=== PATIENT | male | born 1955 | race Caucasian/White ===

== ENCOUNTER → 2020-06-07 08:06 | Outpatient (CLI) | payer OTHER, SELFPAY ==
--- NOTE | 2020-06-07 | DI.MRI.S_ITS ---
PROCEDURE: MR LUMBAR SPINE WO CON INDICATIONS: Low back pain TECHNIQUE: Noncontrast sagittal T1 spin echo and T2 fast echo, sagittal STIR, axial T1 and T2 fast spin echo through the lumbar spine. In cases with scoliosis, additional coronal T2 fast spin echo may be performed. COMPARISON: [facility] Outside Film, RG, SPINE LUMB 2 OR 3VW, 04/30/2020, 10:55. [facility] Outside Film, CT, CT ABDOMEN PELVIS WITH/WITHOUT CONTRAST, 05/06/2014, 14:43. (No written reports accompany the outside images) FINDINGS: Image quality: Diagnostic, with note made of motion artifact. Alignment and Curvature: Mild levoconvex scoliotic curvature is noted. There is minimal retrolisthesis seen at L1-2 and mild retrolisthesis seen at L2-L3 and at L3-L4. Bone Marrow: Marrow is of normal overall signal. Within the anterior/right aspect of the L1 level, there is increased T2 weighted signal and decreased T1 weighted signal seen, as on series 4, image 8 and on series 3, image 8. A mild degree of similar-appearing abnormal signal can be seen within the L2 level, as on series 4, image 7. No acute vertebral body compression fractures. Spinal Cord: Conus medullaris terminates at the L1 level. Visualized cord demonstrates normal signal and size. Paraspinous Soft Tissues: No paravertebral masses. T12-L1: The disc height is well-preserved. Loss of disc signal is seen at this level. Mild to moderate disc bulge is seen, which is eccentric to the right. Bridging endplate osteophytes are seen on the right side. Mild facet joint hypertrophy is seen. There is at least moderate right-sided and moderate left-sided neural foraminal narrowing seen. Mild to moderate central canal narrowing is seen. L1-L2: At least moderate loss of disc height and disc signal can be seen. At least moderate disc bulge is seen, which is eccentric to the right. Mild to moderate facet hypertrophy is seen. There is at least moderate bilateral neural foraminal narrowing seen, right worse than left. Moderate central canal narrowing is seen. L2-L3: Moderate to severe loss of disc height and disc signal can be seen. Reactive marrow endplate changes are seen, which demonstrate mixed T1 weighted and T2-weighted signal, and are attributed to a combination of edema and fatty metaplasia (Modic type I and Modic type II changes). Moderate to prominent disc bulge is seen, with a central disc osteophyte protrusion. There is at least moderate facet hypertrophy seen. Associated hypertrophy of the ligamentum flavum can be seen. Moderate to severe bilateral neural foraminal narrowing is seen, right worse than left. There is a degree of compression seen upon the exiting nerve roots. Moderate to severe central canal narrowing is seen, as on series 5, image 18. L3-L4: Moderate to severe loss of disc height and disc signal can be seen. Reactive marrow endplate changes are seen, which are hyperintense on T1-weighted and T2-weighted imaging and most consistent with fatty metaplasia (Modic type II changes). At least moderate disc bulge is seen. There is a central disc protrusion. At least moderate facet hypertrophy is seen. Associated hypertrophy of the ligamentum flavum can be seen. There is moderate left-sided and [id number] right-sided neural foraminal narrowing seen. There is a degree of compression seen upon the exiting right L3 nerve root. Moderate to severe central canal narrowing is seen at this level, as on series 5, image 25. L4-L5: Postoperative changes seen at this level, with associated susceptibility artifact. Bilateral pedicle screws are seen, with vertical fixation rods. A disc spacer is seen. The disc level itself is not well seen. However, there does appear to be mild to moderate disc bulge. Likely mild bilateral neural foraminal narrowing can be seen. Mild to moderate central canal narrowing is seen. L5-S1: There is at least moderate loss of disc height and disc signal present. Mild to moderate disc bulge is seen. The neural foramina are obscured. There does appear to be mild to moderate left-sided and minimal right-sided neural foraminal narrowing. No significant central canal narrowing is seen. IMPRESSION: There is abnormal signal seen within the L1 vertebral body and to a lesser degree within the L2 vertebral body. In a patient of this age, differential diagnosis includes metastatic disease and bone contusion. Please correlate with known patient history. If clinically appropriate, please consider a follow-up nuclear medicine bone scan or CT study for further evaluation. Unremarkable L4-5 postoperative change. Multiple levels of degenerative change are seen, which are most prominent at L2-L3 and L3-L4. Mild levoconvex lumbar scoliotic curvature. Dictated by: Jacobo Junior M.D. on 06/09/2020 at 8:47 Approved by: Jacobo Junior M.D. on 06/09/2020 at 8:56
== END ==
PROVIDERS: PCP Family Medicine; Referring Provider Orthopaedic Surgery; Visit Provider Orthopaedic Surgery
DX: M54.5 Low back pain (principal); M89.9 Disorder of bone, unspecified; M47.816 Spondylosis without myelopathy or radiculopathy, lumbar region; M41.86 Other forms of scoliosis, lumbar region
CPT/HCPCS: 72148

== ENCOUNTER → 2020-07-03 09:39 | Outpatient (CLI) | payer OTHER, SELFPAY ==
--- NOTE | 2020-07-03 | DI.NM.S_ITS ---
PROCEDURE: NM BONE SPECT RADIOPHARMACEUTICAL: 20.3 mCi Tc-99m MDP IV. INDICATIONS: Wedge compression fracture of T11-T12 vertebra, in TECHNIQUE: Delayed bone scintigrams were obtained of the region of interest 3-4 hours after intravenous administration of Tc-99m MDP. Additional tomographic (SPECT) imaging was performed and displayed in axial, coronal, and sagittal planes. COMPARISON: [facility] Outside Film, CT, CT ABDOMEN PELVIS WITH/WITHOUT CONTRAST, 05/06/2014, 14:43. [facility] Outside Film, RG, SPINE THORACIC 2VW, 04/30/2020, 11:03. [facility] Outside Film, RG, SPINE LUMB 2 OR 3VW, 04/30/2020, 10:55. [facility], MR, MR LUMBAR SPINE WO CON, 06/07/2020, 8:20. FINDINGS: There is mild tracer uptake in the right anterior paravertebral location at T12-L1 level which is likely reactive to severe spondylosis and degeneration with bulky osteophyte formation best seen on the CT from 05/06/14. IMPRESSION: Low-grade presumed reactive/degenerative tracer uptake at the T12-L1 level. Elsewhere, no suspicious tracer activity. Dictated by: David Phillip M.D. on 07/03/2020 at 15:11 Approved by: David Phillip M.D. on 07/03/2020 at 15:22
== END ==
PROVIDERS: PCP Family Medicine; Referring Provider Family Medicine; Visit Provider Orthopaedic Surgery
DX: S22.080A Wedge compression fracture of T11-T12 vertebra, initial encounter for closed fracture (principal)
CPT/HCPCS: 78305; A9503

== ENCOUNTER → 2025-02-27 10:53 | Outpatient (CLI) | payer OTHER, SELFPAY ==
--- NOTE | 2025-02-27 10:55 | DI.CT.S_ITS ---
PROCEDURE: CT CHEST WO CON INDICATIONS: LLL consolidation with possible airway lesion. TECHNIQUE: Noncontrast 5 mm thick sections acquired from the pulmonary apices to the posterior costophrenic angles. 1 mm lung window, 5 mm thick coronal and sagittal and 7 mm axial MIP reformats were then acquired. For radiation dose reduction, the following was used: automated exposure control, adjustment of mA and/or kV according to patient size. COMPARISON: Outside Facility, CT, CT CHEST WO CON, 01/10/2025, 9:46. FINDINGS: Image quality: Diagnostic. Lower Neck: No enlarged lymph nodes. Thyroid: No thyroid nodules which require sonographic follow up, per consensus guidelines. Axillae: No enlarged lymph nodes. Chest Wall: Bilateral gynecomastia. Bones: Stable compression deformity of the T11 and T12 vertebral bodies. Healed left rib fractures. Lungs and Pleura: No pneumothorax or pleural effusions. Persistent pleural parenchymal bands in the left lower lobe . New tree-in-bud nodules in the lateral left lower lobe . Persistent filling defect within the proximal segmental airways of the left lower lobe (series 3, image 153). Stable pulmonary micro nodules. Heart: Heart size is normal. No pericardial effusion. Thoracic Vessels: The aorta and pulmonary arteries demonstrate normal size. Mediastinum and Yeny: No enlarged lymph nodes. Esophagus: No wall thickening. No hiatal hernia. Upper Abdomen: Severe hepatic steatosis. IMPRESSION: Persistent filling defects within the proximal segmental bronchi of the left lower lobe. Recommend endobronchial evaluation to exclude mass. New tree-in-bud nodules in the lateral left lower lobe, likely infectious or inflammatory bronchiolitis. Severe hepatic steatosis. Dictated by: Stefan Bautista M.D. on 02/27/2025 at 12:04 Approved by: Stefan Bautista M.D. on 02/27/2025 at 12:10
== END ==
LOC: CT 10:55
PROVIDERS: PCP Registered Nurse; Referring Provider Student in an Organized Health Care Education/Training Program; Visit Provider Student in an Organized Health Care Education/Training Program
DX: R91.8 Other nonspecific abnormal finding of lung field (principal); K76.0 Fatty (change of) liver, not elsewhere classified; R93.89 Abnormal findings on diagnostic imaging of other specified body structures; R06.02 Shortness of breath
CPT/HCPCS: 71250

== ENCOUNTER 2025-03-05 11:25 | Day surgery (SDC) | payer OTHER, SELFPAY ==
[2025-03-05] VITALS (7 sets, daily range): BP systolic 92–145; BP diastolic 50–101; PULSE 62–80; RESP 12–22; TEMP 36.5; O2SAT 92–96
--- NOTE | 2025-03-05 | PATH_ITS ---
Note [facility] Accession Number: [id number] TESTS RESULT FLAG UNITS REF RANGE LAB Clinician Provided Cytology Information No. of containers..01 Other (Miscellaneous) Source: LEFT LOWER LOBE ENDOBRONCHIAL LESION DIAGNOSIS: LEFT LOWER LOBE ENDOBRONCHIAL LESION, BRUSHING. NEGATIVE FOR MALIGNANT CELLS. BRONCHIAL EPITHELIAL CELLS WITH REACTIVE CHANGES. Pathologist ICD10: R89.6 Signed out by: Brianna Cuevas MD, Pathologist NPI- [id number] Performed by: Yanick Milton, Food Clerk ([facility]) Gross description: 30 CC, COLORLESS, CLEAR RECEIVED: 1 BRUSH IN CYTOLYT WITH BLUE CAP CONTAINER.VO /VDU 03/07/2025 1041 Local FLAG LEGEND: L-Low Normal,H-High Normal,LL-Alert Low,HH-Alert High <-Panic Low,>-Panic High,A-Abnormal,AA-Critical Abnormal Performed at: 01 [address] [facility] [address] [place] [address] [address] [facility], [place] [address] John Faustin MD, Performed at: [address] [place] [address], [place], [place] [id number] MD John Faustin MD Phone: [phone]
[2025-03-05] MEDS: LACTATED RINGERS 1,000 ML 42 ML IV (11:57)
[2025-03-05] MEDS: ALBUTEROL/IPRATROPIUM 3 ML AMPUL INH (11:58)
--- NOTE | 2025-03-05 13:11 | PM.PREOP ---
Pre-operative Note Interval Note History & Physical reviewed/Exam performed by Physician: Yes Changes to H&P: No H&P completed within 30 days and has changed as indicated here:: Yes completed ASA Class (for procedural sedation): I
--- NOTE | 2025-03-05 13:18 | SUR.OPER ---
Supine on gurney, head on towels, arms at side, legs uncrossed.
--- NOTE | 2025-03-05 13:56 | PM.OP.1 ---
Operative Date/Time/Diagnoses Date of procedure: 03/05/25 Time of procedure: 13:20 Pre-op diagnosis: Endobronchial lesion Post-op diagnosis: same Procedure & Clinicians Procedure: Bronchoscopy with endobronchial biopsy Same procedure as scheduled: Yes Indications: Concern for endobronchial mass Surgeon: Emir Allen Click Yes if Unassisted: Yes Anesthesia Type: General Operative Notes Findings: Using therapuetic/diagnostic bronchoscope evaluated right and left lung down to subsegmental level. Roght lung without abnormality. In the left lower lobe notable endobronchial lesion seen in the anterior medial segment of left lower lobe. Forceps biopsy performed x 6. Brushing performed x 1. Forceps biopsy placed into formalin and brushing placed into cytolyte. Lesion monitored x 2 minutes post procedure. Bleeding noted which resolved after instillation of cold saline. Patient tolerated procedure well. Estimated Blood Loss (mL): 5 Complications: none Post-operative Condition: stable Disposition: PACU
--- NOTE | 2025-03-05 14:28 | P.DS_ITS ---
History of Present Illness History of Present Illness Date Patient Seen: 03/05/25 Time Patient Seen: 13:20 Chief complaint: Bronchoscopy Narrative: Larry is a 69-year-old male who presents to [facility] for bronchoscopy for evaluation of endobronchial lesion. Bronchoscopy performed with successful forceps biopsy of endobronchial lesion. Patient monitored in postanesthesia care unit. No acute complications. We will follow up with Pulmonary as an outpatient Discharge Providers Provider Discharge Date: 03/05/25 Primary care physician: HARI Ambrocio Discharge provider: Emir Allen MD Summary Status at Discharge Cognitive/behavioral status at discharge: oriented Time Spent with Patient Time spent: Less than 30 minutes Exam Vital Signs (past 8 hours): - 03/05/25 12:05 03/05/25 14:07 03/05/25 14:12 Temperature 97.7 F 97.7 F Pulse Rate 80 62 62 Respiratory Rate 18 16 18 Blood Pressure 145/84 H 145/101 H 102/50 L Pulse Oximetry 96 95 92 Oxygen Delivery Method Room Air Simple Mask Room Air 03/05/25 14:17 03/05/25 14:22 03/05/25 14:26 Temperature Pulse Rate 64 63 Respiratory Rate 18 12 14 Blood Pressure 92/54 L 106/61 104/55 L Pulse Oximetry 92 93 93 Oxygen Delivery Method Room Air Room Air Room Air Oxygen Delivery Method Room Air Narrative Exam Narrative: GEN: No acute distress. Generally well-appearing. HEENT: Extraocular muscles grossly intact. CV: Regular rate and rhythm. No murmurs gallops or rubs. Resp: Right lung wheeze Ext: No peripheral edema. No deformities. Neuro: Cranial nerves grossly intact. No focal deficits. [facility] Medical History (Updated 02/19/25 @ 11:12 by Emir Allen MD) Abnormal chest CT Shortness of breath Social History Smoking Status: Former smoker alcohol intake: current Discharge Assessment & Plan Assessment and Plan Assessment: No acute complications. Okay for discharge Plan of Treatment: Follow up with Pulm Discharge Plan Discharge Plan Patient Disposition: Home Discharge orders & Medications Discharge Orders: Discharge (Order); Ordered 03/05/25 Ordered By: Emir Allen Prescriptions: Continued quetiapine 100 mg tablet 100 mg PO BEDTIME amlodipine 10 mg tablet 10 mg PO DAILY Follow up/Referrals: Katus,Patty, [facility] [employer] [Primary Care Provider] - Diet/Activity/Treatments Diet: Diet as Tolerated Activity: As previous Visit Report/Discharge Packet Instructions: DI for Bronchoscopy, Diagnostic Stand Alone Forms: Patient Portal/API Discharge Data Primary Care Provider: Patty Peters Attending Provider: Emir Allen Charge Codes Discharge inpatient/observation: [id number]
== END 2025-03-05 14:50 | disposition home or self-care (01) ==
PROVIDERS: PCP Registered Nurse; Referring Provider Student in an Organized Health Care Education/Training Program; Visit Provider Student in an Organized Health Care Education/Training Program
PROC: 0BJ08ZZ Inspection of Tracheobronchial Tree, Via Natural or Artificial Opening Endoscopic (ICD-10-PCS; CPT 31622; principal; 2025-03-05 13:00)
DX: J98.09 Other diseases of bronchus, not elsewhere classified (principal); Z87.891 Personal history of nicotine dependence; R06.02 Shortness of breath; Z86.16 Personal history of COVID-19; Z80.1 Family history of malignant neoplasm of trachea, bronchus and lung; Z82.49 Family history of ischemic heart disease and other diseases of the circulatory system
CPT/HCPCS: 31625; J0330; J2704; J3490